=== PATIENT | female | born 1960 | race Caucasian/White ===

== ENCOUNTER → 2018-04-26 13:36 | Outpatient (CLI) | payer OTHER, SELFPAY ==
[2018-05-01 11:19] LABS: QuantiFERON TB Negative (Negative)
== END ==
PROVIDERS: PCP Family Medicine; Visit Provider Family Medicine
DX: Z11.1 Encounter for screening for respiratory tuberculosis (principal)
CPT/HCPCS: 36415; 86480

== ENCOUNTER → 2018-05-21 09:38 | Outpatient (CLI) | payer OTHER, SELFPAY ==
--- NOTE | 2018-05-21 | DI.US.S_ITS ---
ULTRASOUND OF RIGHT BREAST: 05/21/2018 CLINICAL: Short term follow-up right axillary nodes. Comparison is made to exams dated: 12/07/2017 ultrasound, 12/07/2017 mammogram, and 02/20/2014 mammogram - [facility]. Color flow ultrasound of the right breast was performed on the areas of interest. Miller scale images of the real-time examination were reviewed. There are multiple 1.1 cm x 0.6 cm x 0.7 cm lobulated enlarged nodes in the right axillary tail. These abnormalities are not significantly changed from the ultrasound dated 12/07/17 and correlate as palpated. IMPRESSION: SUSPICIOUS OF MALIGNANCY - FOLLOW-UP RECOMMENDED The multiple 1.1 cm x 0.6 cm x 0.7 cm lobulated enlarged nodes are at a low suspicion for malignancy. An ultrasound guided biopsy is recommended. This exam was interpreted at Station ID: [id number]. SUMMARY: This was discussed with the patient by the radiologist at the time of the exam. Electronically Signed By: Nancy ryan/:05/21/2018 12:05:54 letter sent: Biopsy Required Ultrasound BI-RADS: 4a Suspicious abnormality - low suspicion for malignancy
--- NOTE | 2018-05-21 09:39 | DI.US.S_ITS ---
PROCEDURE: US SOFT TISSUE HEAD AND NECK INDICATIONS: Lymphadenopathy TECHNIQUE: Real-time scanning was performed of the neck region of interest, with image documentation. COMPARISON: None. FINDINGS: Sonographic images of the neck demonstrate bilateral lymph nodes in the supraclavicular region as well as posterior right neck. The largest in the supraclavicular regions as identified on the left measuring 14 x 10 x 21 mm. There is no increased vascularity. The posterior right neck lymph node measures 12 x 3 x 11 mm. IMPRESSION: Mildly enlarged lymph nodes as above. While these could be reactive in nature, recommend interval followup if there is concern for potential neoplastic disease. Dictated by: Wanda Gibbons M.D. on 05/21/2018 at 11:52 Approved by: Wanda Gibbons M.D. on 05/21/2018 at 11:54
== END ==
PROVIDERS: PCP Family Medicine; Visit Provider Family Medicine
DX: R59.0 Localized enlarged lymph nodes (principal)
CPT/HCPCS: 76536; 76882

== ENCOUNTER → 2018-06-26 15:00 | Outpatient (CLI) | payer OTHER, SELFPAY | PROVIDERS: PCP Family Medicine | DX: Z23 Encounter for immunization (principal) | CPT/HCPCS: 90471; 90686 ==

== ENCOUNTER → 2018-07-02 09:50 | Outpatient (CLI) | payer OTHER, SELFPAY ==
--- NOTE | 2018-07-02 | DI.MG.S_ITS ---
UNILATERAL RIGHT DIGITAL DIAGNOSTIC MAMMOGRAM: 07/02/2018 CLINICAL: Post clip placement. Enlarged nodes right breast. Comparison is made to exams dated: 07/02/2018 ultrasound biopsy, 05/21/2018 ultrasound, 12/07/2017 ultrasound, 12/07/2017 ultrasound, 12/07/2017 mammogram, and 02/20/2014 mammogram - [facility]. There are scattered fibroglandular elements in the right breast. Multiple positions and attempts at digital mammography were attempted. Known biopsy marker visualized on ultrasound within the right axilla cannot be demonstrated on digital mammography due to positioning. IMPRESSION: POST PROCEDURE MAMMOGRAM FOR MARKER PLACEMENT Known biopsy marker visualized on ultrasound within the right axilla cannot be demonstrated on digital mammography due to positioning. This exam was interpreted at Station ID: [id number]. NOTE: For mammograms, a report in lay terms will be sent to the patient. Approximately 15% of breast malignancies will not be visualized mammographically. In the management of a palpable breast mass, a negative mammogram must not discourage biopsy of a clinically suspicious lesion. Electronically Signed By: Alfred Merrill M.D. ecl/:07/02/2018 12:35:28 ACR BI-RADS Category Post-procedure mammogram for marker placement
--- NOTE | 2018-07-02 | PATH_ITS ---
[facility] Accession Number: [id number] . 01 Material submitted: . RIGHT AXILLARY LYMPH NODE . 01 Diagnosis: Right Axillary Lymph Node, Image-Guided Biopsy: Atypical B-lymphoid infiltrates, see microscopic description. MRV/07/09/2018 . 01 Electronically signed: . Noah Giles MD, Pathologist NPI- [id number] . 01 Gross description: . Received in formalin are multiple core biopsies of street-white tissue (lengths-1.1 cm-1.7 cm, diameters-0.1 cm). Entirely submitted in cassette A1. ([id number]) /MRV . 01 Microscopic: . Microscopic examination reveals slightly distorted architecture of the lymph node with mildly increased number of lymphoid follicles (however not overly increased or with [id number] morphology). To better evaluate those lymphoid follicles, a panel of immunostains is performed with the following results: . CD10, BCL6 and CD20 label the lymphoid follicles (CD23 marking the follicular dendritic meshwork). BCL2 shows aberrant coexpression in those slightly atypical follicles. The proliferation marker Ki-67 is low, positive within the atypical as well as the reactive follicles. Cyclin-D1 is negative. CD3, CD5 and CD43 label inter- and perifollicular T-lymphocytes (which also appropriately express BCL2). [place] and lambda light chain immunostains show mild kappa excess (although without definite kappa restriction). [place] and lambda light chains label background polytypic plasma cells. JOSE A immunostain (panepithelial marker) is negative for carcinoma. . Although those follicles are atypical (mildly increased in number with aberrant BCL2 coexpression), the overall findings are worrisome but not entirely diagnostic for low-grade B-cell lymphoma. . Therefore, excision of the lymph node is advised for better evaluation (with flow cytometry performed on tissue within RPMI media). . As part of ongoing supervisor quality control, this case is also reviewed by hematopathologist, Dr. Manuela Virgen, who agrees with the interpretation. . * This test was developed and its performance characteristics determined by [employer] It has not been cleared or approved by the U.S. Food and Drug Administration. The FDA has determined that such clearance or approval is not necessary. This test is used for clinical purposes. It should not be regarded as investigational or for research. . 01 Pathologist provided ICD-10: R59.0 . 01 CPT . 809349, C09301, X72827 Specimen Comment: A duplicate report has been generated due to demographic updates. [facility]formed at: [facility] [address] [place] [address], [place], [place] [id number] MD Tian Newton MD Phone: [phone]
--- NOTE | 2018-07-02 | DI.US.S_ITS ---
ULTRASOUND GUIDED BIOPSY RIGHT BREAST WITH MARKING DEVICE INSERTED AND POST DIGITAL MAMMOGRAPHIC AND ULTRASOUND IMAGIN07/02/2018 CLINICAL: Right axillary node biopsy. PATIENT CONSENT: Risks (minor bleeding, infection, vasovagal reaction and repeat procedure), benefits and alternatives were explained to the patient and written informed consent was obtained. Correlation is made to exams dated: 05/21/2018 ultrasound, 12/07/2017 ultrasound, 12/07/2017 mammogram, and 02/20/2014 mammogram - [facility]. An ultrasound guided biopsy using real-time ultrasound was performed for the concerning lymph node located in the right axilla. This was described on the previous ultrasound report. The skin was prepped in the usual manner. 5 mL of 1% lidocaine and 5 mL of 1% lidocaine with epinephrine was used for local anesthesia. The abnormality was approached from the lateral aspect. An 18 gauge biopsy needle was placed adjacent to the abnormality under ultrasound guidance. Once the needle was documented to be in the correct location, six specimens were obtained using the [employer] biopsy device. A Celero maddison-shaped clip was inserted into the biopsy cavity. A skin adhesive was applied to the access site. Post procedure ultrasound imaging demonstrates the clip at the targeted area within the lymph node; post procedure digital diagnostic mammography could not achieve adequate axillary positioning to visualize the clip mammographically. The specimens were sent to the laboratory for pathological analysis. IMPRESSION: ULTRASOUND GUIDED BIOPSY MALIGNANT Ultrasound guided biopsy of the lymph node in the right axilla was successful with no apparent post procedure complications. Pathology demonstrates atypical B-lymphoid infiltrates worrisome for low-grade B-cell lymphoma. Surgical excision of the lymph node is advised. The lymph node is amenable to ultrasound guided wire localization for surgical excision. This exam was interpreted at Station ID: [id number]. Alfred perez,ddp/:07/10/2018 08:07:40
== END ==
PROVIDERS: PCP Family Medicine; Visit Provider Family Medicine
DX: R59.0 Localized enlarged lymph nodes (principal); R92.8 Other abnormal and inconclusive findings on diagnostic imaging of breast
CPT/HCPCS: 38505; 76942; 77065; 77066; G0279

== ENCOUNTER → 2018-07-24 08:09 | Outpatient (CLI) | payer OTHER, SELFPAY ==
--- NOTE | 2018-07-24 | DI.MG.S_ITS ---
SPECIMEN RIGHT BREAST: 07/24/2018 CLINICAL: Right Axillary specimen. Correlation is made to exam dated: 05/21/2018 [facility]. A surgical specimen was imaged for the concerning circumscribed oval lymph node located in the right axillary tail. This was described on the previous mammography report. IMPRESSION: SPECIMEN The imaged specimen includes the lesion and the distal portion of the localization wire. The specimen shows characteristics of the mammographic and sonographic findings. This exam was interpreted at Station ID: [id number]. Tian sears/gabriella:07/25/2018 09:21:51
--- NOTE | 2018-07-24 | DI.US.S_ITS ---
PROCEDURE: US WIRE LOC NON BREAST COMPARISON: None. INDICATIONS: PRE-OP WIRE LOCALIZATION FINDINGS: After obtaining informed consent the right axillary region was prepared and draped in sterile fashion and anesthetized with 1% lidocaine. Utilizing sonographic guidance a 7 cm long Kopan's wire was advanced with its tip penetrating the posterior margin of the previously biopsied right axillary lymph node, containing a similar oval metallic clip within. This was successfully accomplished, and the patient was transported to the presurgery area for preparation for axillary lymph node excision. IMPRESSION: Successful ultrasound-guided wire localization of a recently biopsied right axillary lymph node. Dictated by: Jossue Shelton M.D. on 07/24/2018 at 9:50 Approved by: Jossue Shelton M.D. on 07/24/2018 at 9:51
== END ==
PROVIDERS: PCP Family Medicine; Visit Provider Surgery
DX: R59.1 Generalized enlarged lymph nodes (principal)
CPT/HCPCS: 10035; 76098

== ENCOUNTER 2018-07-24 08:11 | Day surgery (SDC) | payer OTHER, SELFPAY ==
[2018-07-24] VITALS (8 sets, daily range): BP systolic 97–139; BP diastolic 67–93; PULSE 54–93; RESP 10–16; TEMP 36.1–37; O2SAT 97–100; BMI 29.0
--- NOTE | 2018-07-24 | PATH_ITS ---
[facility] Accession Number: [id number] . 01 Material submitted: . PART A: RIGHT AXILLARY LYMPH NODE PART B: RIGHT AXILLARY LYMPH NODE . 01 Diagnosis: A, B. 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 Negative for diffuse large B-cell lymphoma. MRV/07/30/2018 . 01 Comment: As part of ongoing chemistry quality control analyst, this case is also reviewed by Dr. Manuela Virgen, hematopathologist, who agrees with the diagnosis. . 01 Electronically signed: . Noah Giles MD, Pathologist NPI- [id number] . 01 Gross description: . (A) Received in formalin, labeled right axillary lymph node, are multiple pieces of adipose tissue (4.5 x 3.4 x 1.7 cm in aggregate) partially covered in das-white smooth shiny unremarkable skin (2.1 x 0.7 cm). The adipose tissue contains multiple fragments of lymph node (3.0 x 2.2 x 0.4 cm in aggregate). The lymph node fragments are entirely submitted in cassette A1 and a service support representative section of skin and adipose tissue are submitted in cassette A2. (B) Received in B-Plus fix, labeled right axillary lymph node, are multiple piece of lymph node (3.2 x 2.2 x 0.6 cm in aggregate). Serially sectioned and entirely submitted in cassettes B1 and B2. . Note: Per the requisition, additional tissue was received in RPMI and sent to flow cytometry for analysis. (JM:cmc10 [id number]) /MRV . 01 Microscopic: . Microscopic examination of the axillary lymph node (parts A and B) reveals effacement of the normal ganga architecture and proliferation of neoplastic lymphocytes with a predominantly follicular pattern, as well as within interfollicular distribution. The neoplastic follicles are crowded, back to back, lacking mantle zones. The neoplastic lymphocytes also extend in the perinodal adipose tissue. The neoplastic follicles are composed of predominantly small lymphocytes, with irregular cleaved nucleus and inconspicuous nucleolus (centrocytes) with only fewer interspersed larger lymphocytes (centroblasts) present. The centroblast count is less than 15 per 40X high-power field. Immunohistochemical studies were performed with the following results: . CD3 (blocks A1, B1): T lymphocytes positive. CD5 (block A1): T lymphocytes positive (neoplastic lymphocytes negative). CD10 (block A1): Neoplastic follicles positive. CD20 (blocks A1 and B1): Neoplastic lymphocytes positive in follicular and interfollicular location. CD23 (blocks A1 and B1): Follicular dendritic meshwork preserved. CD43 (block A1): T lymphocytes positive (neoplastic lymphocytes negative). BCL2 (blocks A1 and B1): Neoplastic B lymphocytes positive. BCL6 (blocks A1 and B1): Neoplastic B lymphocytes positive. Cyclin D1 (block A1): Neoplastic B lymphocytes negative. Proliferation marker Ki-67 (blocks A1 and B1): Approximately 20%-30%. . In summary, the morphology along with immunohistochemistry supports mature B-cell lymphoma, follicular center cell origin, consistent with follicular lymphoma low grade (grade 1-2/3) without evidence of diffuse large B-cell component. . * This test was developed and its performance characteristics determined by [employer]. It has not been cleared or approved by the U.S. Food and Drug Administration. The FDA has determined that such clearance or approval is not necessary. This test is used for clinical purposes. It should not be regarded as investigational or for research. . 01 Pathologist provided ICD-10: C82.14 . 01 CPT . 243090, 780566, B88848, T68930 Performed at: [facility] [address], [place], [place] [id number] MD Tian Newton MD Phone: [phone]
[2018-07-24] MEDS: LACTATED RINGERS 1,000 ML 100 ML IV (09:54)
--- NOTE | 2018-07-24 11:22 | PM.PREOP ---
Pre-operative Note Interval Note Pre-op Check: Yes History & Physical Reviewed by Physician and Yes Exam Performed Changes: No H&P completed within 30 days and has changed as indicated here:: Patient seen and examined. Patient marked in the preoperative area. Images are reviewed. History and physical examination documented last week as not changed. We will proceed with needle localization lymph node excisional biopsy as planned today.
--- NOTE | 2018-07-24 11:46 | SUR.OPER ---
Supine on padded OR bed, head on pillow, arms secured on padded arm boards at <90 degrees abduction, legs uncrossed, safety belt at thigh, tape over blanket over lower legs.
[2018-07-24] MEDS: LIDOCAINE 1% W/EPI INJ 20 ML INJ (12:39)
[2018-07-24] MEDS: BUPIVACAINE 0.5% (PF) VIAL 30 ML INJ (12:40)
--- NOTE | 2018-07-24 13:21 | P.OP_ITS ---
Operative Date/Time/Diagnoses Date of procedure: 07/24/18 Time of procedure: 13:14 Pre-op diagnosis: right axillary lymphadenopathy Post-op diagnosis: same Procedure & Clinicians Procedure: right axillary wire localization lymph node excisional biopsy Same procedure as scheduled: Yes Indications: 58-year-old female who presented with palpable lymphadenopathy confirmed on ultrasound. Image guided biopsy was suspicious for low-grade B- cell lymphoma. Excisional biopsy was recommended. Wire localization was also recommended since the previous node had been marked with a biopsy marker clip. Surgeon: Teodoro Burns Click Yes if Unassisted: Yes Anesthesia Type: General Operative Notes Findings: 1. intact wire localization device within conglomeration of enlarged multiple lymph nodes right axilla 2. grossly abnormal right axillary lymph nodes, excised Closure Type: primary Specimen(s): other ( right axillary lymph nodes for lymphoma studies) Implants & Drains: [address] drain right axilla to bulb suction Applied: drain(s) ( as above) Estimated Blood Loss (mL): 10 Blood products transfused: none Procedure in detail: after obtaining informed consent the patient was initially brought to Radiology Department where wire localization under ultrasound guidance was performed. Please see their records for further details. Patient was then brought to the operating room and placed supine on the table. After satisfactory induction of anesthesia the wire was cut to a shorter length and the entire field was prepped and draped in usual sterile fashion. SCOAP time out was performed per standard protocol. elliptical incision was then designed in the right axilla incorporating the wire insertion site. Area was infiltrated with a 1: 1 mixture 1% lidocaine with 1 :100,000 epinephrine and 0.5% plain Marcaine for postoperative analgesia. Skin incision was created to 15 scalpel blade. Bovie was used to achieve hemostasis and carried the dissection directly into the axillary contents following the course of the wire. Great care was taken to avoid dislodging the wire. Findings are as above. Lymph nodes were excised along with the wire device. Hemostasis was achieved with clamps and 2 0 silk ties. Hemoclips were applied also. Specimen was excised and sent back to Radiology for radiographic examination. Lymph node containing the previously placed biopsy marker clip as well as the intact wire device was visualized. Wound was irrigated with copious amounts of sterile saline solution and hemostasis verified. Lane drain was placed through a separate stab incision inferior to the wound and secured to the skin with 3 0 nylon stitch. Subcutaneous tissue was reapproximated with interrupted 3 0 Vicryl suture. Skin was closed in a running subcuticular fashion with 4 0 Monocryl suture. Dermal adhesive was applied to the incision. Drain was cut to appropriate size and placed to bulb suction. Sterile dressing was placed around the drain. Anesthesia was reversed and patient extubated in the operating room. She was taken recovery in stable condition. Complications: none Condition: stable Disposition: PACU Plan for aftercare: 1. Discharge to home 2. Drain care as instructed 3. Follow up in surgery Clinic in 3 days
== END 2018-07-24 13:33 | disposition home or self-care (01) ==
PROVIDERS: PCP Family Medicine; Visit Provider Surgery
PROC: (CPT 38500; principal; 2018-07-24 11:30)
DX: C82.14 Follicular lymphoma grade II, lymph nodes of axilla and upper limb (principal)
CPT/HCPCS: 38500; 10035; 76098; J1100; J2250; J2405; J2704; J3010

== ENCOUNTER → 2018-12-26 08:11 | Outpatient (CLI) | payer OTHER, SELFPAY ==
[2018-12-26 08:48] LABS: Add Manual Diff / Slide Review NO; Basophils Absolute Auto 100 /uL (0-100); Eosinophils Absolute Auto 200 /uL (0-450); Eosinophils Percent Auto 2.9 % (2-4); Hematocrit 37.2 % (36-46); Hemoglobin 12.5 g/dL (12.0-16.0); Lymphocytes Absolute Auto 1700 /uL (1100-4500); Lymphocytes Percent Auto 25.9 % (25-40); Mean Corpuscular HGB Conc 33.5 % (30-36); Mean Corpuscular Hemoglobin 27.7 PG (26-34); Mean Corpuscular Volume 82.7 fL (80-100); Monocytes Absolute Auto 600 /uL (0-900); Monocytes Percent Auto 8.2 % (3-14); Neutrophils Absolute Auto 4200 /uL (1500-7000); Platelet Count 210 X10^3/uL (150-400); Red Cell Distribution Width 12.8 % (11.6-14.8); White Blood Cell Count 6.7 X10^3/uL (4.5-11.0)
[2018-12-26 08:56] LABS: Cholesterol 190 mg/dL (140-199); HDL Cholesterol 50 mg/dL (40-60); LDL Cholesterol Calculated 123 mg/dL (<100); Triglycerides 85 mg/dL (35-150)
[2018-12-26 09:33] LABS: Free T3, Triiodothyronine Free 2.85 pg/mL (2.77-5.27)
== END ==
PROVIDERS: PCP Family Medicine; Visit Provider Family Medicine
DX: E03.9 Hypothyroidism, unspecified (principal); Z51.81 Encounter for therapeutic drug level monitoring
CPT/HCPCS: 36415; 80061; 84439; 84443; 84481; 85025

== ENCOUNTER → 2018-12-31 11:30 | Outpatient (CLI) | payer OTHER, SELFPAY ==
--- NOTE | 2018-12-31 11:33 | DI.RAD.S_ITS ---
PROCEDURE: XR CHEST 2V INDICATIONS: SOB TECHNIQUE: 2 views of the chest were acquired. COMPARISON: [facility], , CHEST 2 VIEW, 11/02/2017, 8:05. FINDINGS: Surgical changes and devices: None. Lungs and pleura: Lungs are clear. No pleural effusions or pneumothorax. Mediastinum: Mediastinal contours are normal. Heart size is normal. Bones and chest wall: No suspicious bony abnormalities. Soft tissues appear unremarkable. IMPRESSION: No active cardiopulmonary disease. Dictated by: Clarisse Remy M.D. on 12/31/2018 at 14:25 Approved by: Clarisse Remy M.D. on 12/31/2018 at 14:25
== END ==
PROVIDERS: PCP Family Medicine; Visit Provider Family Medicine
DX: R06.02 Shortness of breath (principal)
CPT/HCPCS: 71046

== ENCOUNTER → 2019-01-29 10:15 | Outpatient (CLI) | payer OTHER, SELFPAY ==
--- NOTE | 2019-01-29 | DI.MG.S_ITS ---
BILATERAL DIGITAL SCREENING MAMMOGRAM 3D/2D WITH CAD: 01/29/2019 CLINICAL: Routine screening. Personal history of right breast cancer. Comparison is made to exams dated: 12/07/2017 mammogram, 02/11/2014 mammogram, and 08/12/2008 mammogram - [facility]. There are scattered fibroglandular elements in both breasts. Current study was also evaluated with a Computer Aided Detection (CAD) system. There are benign masses in both breasts. No significant masses, calcifications, or other findings are seen in either breast. There has been no significant interval change. IMPRESSION: There is no mammographic evidence of malignancy. A 1 year screening mammogram is recommended. This exam was interpreted at Station ID: [id number]. NOTE: For mammograms, a report in lay terms will be sent to the patient. Approximately 15% of breast malignancies will not be visualized mammographically. In the management of a palpable breast mass, a negative mammogram must not discourage biopsy of a clinically suspicious lesion. Electronically Signed By: Ernesto noe/gabriella:01/29/2019 12:32:52 letter sent: Normal Exam ACR BI-RADS Category 2: Benign Finding(s) 3342F
== END ==
PROVIDERS: PCP Family Medicine; Visit Provider Family Medicine
DX: Z12.31 Encounter for screening mammogram for malignant neoplasm of breast (principal); Z85.3 Personal history of malignant neoplasm of breast
CPT/HCPCS: 77063; 77067

== ENCOUNTER → 2020-02-24 16:00 | Outpatient (CLI) | payer OTHER, SELFPAY ==
[2020-02-24 17:42] LABS: Hemoglobin A1C% w Est Avg Glu 5.7 % (4.0-6.0)
[2020-02-24 18:36] LABS: Thyroid Stimulating Hormone 1.26 uIU/mL (0.47-4.68)
== END ==
PROVIDERS: PCP Student in an Organized Health Care Education/Training Program; Referring Provider Naturopath; Visit Provider Naturopath
DX: E03.9 Hypothyroidism, unspecified (principal); R73.9 Hyperglycemia, unspecified
CPT/HCPCS: 36415; 83036; 84443

== ENCOUNTER → 2020-05-18 17:24 | Outpatient (CLI) | payer OTHER, SELFPAY ==
--- NOTE | 2020-05-18 17:27 | DI.MG.S_ITS ---
BILATERAL DIGITAL SCREENING MAMMOGRAM 3D/2D WITH CAD: 05/18/2020 CLINICAL: Routine screening. Comparison is made to exams dated: 01/29/2019 mammogram, 12/07/2017 mammogram, 02/20/2014 mammogram, and 02/11/2014 mammogram - [facility]. There are scattered fibroglandular elements in both breasts. Current study was also evaluated with a Computer Aided Detection (CAD) system. There are benign masses in both breasts. No significant masses, calcifications, or other findings are seen in either breast. There has been no significant interval change. IMPRESSION: BENIGN There is no mammographic evidence of malignancy. A 1 year screening mammogram is recommended. This exam was interpreted at Station ID: [id number]. NOTE: For mammograms, a report in lay terms will be sent to the patient. Approximately 15% of breast malignancies will not be visualized mammographically. In the management of a palpable breast mass, a negative mammogram must not discourage biopsy of a clinically suspicious lesion. Electronically Signed By: Edwardo Brown M.D., jr/gabriella:05/19/2020 09:36:33 letter sent: Normal Exam ACR BI-RADS Category 2: Benign Finding(s) 3342F
== END ==
PROVIDERS: PCP Student in an Organized Health Care Education/Training Program; Referring Provider Student in an Organized Health Care Education/Training Program; Visit Provider Student in an Organized Health Care Education/Training Program
DX: Z12.31 Encounter for screening mammogram for malignant neoplasm of breast (principal)
CPT/HCPCS: 77063; 77067

== ENCOUNTER → 2020-11-16 12:00 | Outpatient (CLI) | payer OTHER, SELFPAY ==
[2020-11-16 12:49] LABS: Add Manual Diff / Slide Review NO; Basophils Absolute Auto 100 /uL (0-100); Basophils Percent Auto 0.7 % (0-2); Eosinophils Absolute Auto 100 /uL (0-450); Eosinophils Percent Auto 1.6 % (2-4); Hemoglobin 12.7 g/dL (12.0-16.0); Lymphocytes Absolute Auto 2500 /uL (1100-4500); Lymphocytes Percent Auto 30.7 % (25-40); Mean Corpuscular HGB Conc 33.3 % (30-36); Mean Corpuscular Hemoglobin 27.2 PG (26-34); Mean Corpuscular Volume 81.7 fL (80-100); Monocytes Absolute Auto 500 /uL (0-900); Monocytes Percent Auto 6.3 % (3-14); Neutrophils Absolute Auto 4900 /uL (1500-7000); Neutrophils Percent Auto 60.7 % (50-75); Platelet Count 264 X10^3/uL (150-400); Red Blood Cell Count 4.65 X10^6/uL (4.0-5.2); Red Cell Distribution Width 13.4 % (11.6-14.8)
[2020-11-16 13:08] LABS: Alanine Aminotransferase 22 IU/L (<35); Albumin 4.5 g/dL (3.5-5.0); Albumin Globulin Ratio 1.5 (1.0-2.8); Alkaline Phosphatase 69 U/L (38-126); Aspartate Aminotransferase 26 IU/L (14-36); BUN Creatinine Ratio 13.6 (6-22); Bilirubin Total 0.3 mg/dL (0.2-1.3); Bilirubin Unconjugated 0.4 mg/dL (0.0-1.1); Blood Urea Nitrogen 11 mg/dL (7-17); Calcium 9.7 mg/dL (8.4-10.2); Carbon Dioxide 28 mmol/L (22-32); Chloride 100 mmol/L (98-107); Estimated Glomerular Filt Rate > 60.0 mL/min (>60); Globulin 3.1 g/dL (1.7-4.1); Glucose 103 mg/dL (80-110); HEMOLYSIS < 15 (0-50); Lactate Dehydrogenase 455 U/L (313-618); Magnesium 2.2 mg/dL (1.6-2.3); Phosphorous 3.8 mg/dL (2.8-4.1); Potassium 4.1 mmol/L (3.4-5.1); Sodium 135 mmol/L (137-145); Total Protein 7.6 g/dL (6.3-8.2); Uric Acid 4.8 mg/dL (2.5-6.2)
== END ==
PROVIDERS: PCP Student in an Organized Health Care Education/Training Program; Referring Provider Internal Medicine Hematology & Oncology; Visit Provider Internal Medicine Hematology & Oncology
DX: C82.01 Follicular lymphoma grade I, lymph nodes of head, face, and neck (principal)
CPT/HCPCS: 36415; 80069; 80076; 83615; 83735; 84550; 85025

== ENCOUNTER → 2021-04-14 10:22 | Outpatient (CLI) | payer OTHER, SELFPAY ==
[2021-04-14 13:31] LABS: Free T3, Triiodothyronine Free 3.03 pg/mL (2.77-5.27); Free T4, Direct Thyroxine 0.74 ng/dL (0.78-2.19)
[2021-04-14 13:44] LABS: Thyroid Stimulating Hormone 1.17 uIU/mL (0.47-4.68)
== END ==
PROVIDERS: PCP Student in an Organized Health Care Education/Training Program; Referring Provider Naturopath; Visit Provider Naturopath
DX: E03.9 Hypothyroidism, unspecified (principal)
CPT/HCPCS: 36415; 84439; 84443; 84481

== ENCOUNTER → 2021-07-12 16:43 | Outpatient (CLI) | payer OTHER, SELFPAY ==
--- NOTE | 2021-07-12 16:44 | DI.MG.S_ITS ---
BILATERAL DIGITAL SCREENING MAMMOGRAM 3D/2D WITH CAD: 07/12/2021 Comparison is made to exams dated: 07/02/2018 mammogram, 05/18/2020 mammogram, and 01/29/2019 mammogram - [facility]. There are scattered fibroglandular elements in both breasts. Current study was also evaluated with a Computer Aided Detection (CAD) system. There are benign masses in both breasts. No significant masses, calcifications, or other findings are seen in either breast. There has been no significant interval change. IMPRESSION: BENIGN There is no mammographic evidence of malignancy. A 1 year screening mammogram is recommended. This exam was interpreted at Station ID: [id number]. NOTE: For mammograms, a report in lay terms will be sent to the patient. Approximately 15% of breast malignancies will not be visualized mammographically. In the management of a palpable breast mass, a negative mammogram must not discourage biopsy of a clinically suspicious lesion. Electronically Signed By: Ernesto noe/gabriella:07/13/2021 09:22:49 letter sent: Normal Exam ACR BI-RADS Category 2: Benign Finding(s) 3342F
== END ==
PROVIDERS: PCP Student in an Organized Health Care Education/Training Program; Referring Provider Student in an Organized Health Care Education/Training Program; Visit Provider Student in an Organized Health Care Education/Training Program
DX: Z12.31 Encounter for screening mammogram for malignant neoplasm of breast (principal)
CPT/HCPCS: 77063; 77067

== ENCOUNTER → 2021-12-06 14:09 | Outpatient (CLI) | payer OTHER, SELFPAY ==
[2021-12-06 16:29] LABS: Add Manual Diff / Slide Review NO; Basophils Absolute Auto 100 /uL (0-100); Basophils Percent Auto 0.7 % (0-2); Eosinophils Absolute Auto 200 /uL (0-450); Eosinophils Percent Auto 2.8 % (2-4); Hematocrit 40.5 % (36-46); Hemoglobin 13.5 g/dL (12.0-16.0); Lymphocytes Absolute Auto 2400 /uL (1100-4500); Lymphocytes Percent Auto 28.6 % (25-40); Mean Corpuscular HGB Conc 33.3 % (30-36); Mean Corpuscular Hemoglobin 27.1 PG (26-34); Mean Corpuscular Volume 81.5 fL (80-100); Monocytes Absolute Auto 500 /uL (0-900); Monocytes Percent Auto 6.4 % (3-14); Neutrophils Absolute Auto 5300 /uL (1500-7000); Neutrophils Percent Auto 61.5 % (50-75); Platelet Count 253 X10^3/uL (150-400); Red Blood Cell Count 4.96 X10^6/uL (4.0-5.2); Red Cell Distribution Width 13.5 % (11.6-14.8); White Blood Cell Count 8.6 X10^3/uL (4.5-11.0)
[2021-12-06 17:48] LABS: Alanine Aminotransferase 20 IU/L (<35); Albumin 5.1 g/dL (3.5-5.0); Albumin Globulin Ratio 1.5 (1.0-2.8); Alkaline Phosphatase 59 U/L (38-126); Aspartate Aminotransferase 25 IU/L (14-36); BUN Creatinine Ratio 18.4 (6-22); Bilirubin Total 0.6 mg/dL (0.2-1.3); Blood Urea Nitrogen 14 mg/dL (7-17); Calcium 9.3 mg/dL (8.4-10.2); Carbon Dioxide 26 mmol/L (22-32); Chloride 103 mmol/L (98-107); Estimated Glomerular Filt Rate > 60.0 mL/min (>60); Globulin 3.3 g/dL (1.7-4.1); Glucose 98 mg/dL (80-110); HEMOLYSIS < 15 (0-50); Potassium 3.8 mmol/L (3.4-5.1); Sodium 137 mmol/L (137-145); Total Protein 8.4 g/dL (6.3-8.2)
[2021-12-06 19:25] LABS: Lactate Dehydrogenase 517 U/L (313-618); Uric Acid 4.8 mg/dL (2.5-6.2)
== END ==
PROVIDERS: PCP Student in an Organized Health Care Education/Training Program; Referring Provider Internal Medicine Hematology & Oncology; Visit Provider Internal Medicine Hematology & Oncology
DX: C82.90 Follicular lymphoma, unspecified, unspecified site (principal)
CPT/HCPCS: 36415; 80053; 83615; 84550; 85025

== ENCOUNTER → 2022-08-12 11:42 | Outpatient (CLI) | payer OTHER, SELFPAY ==
--- NOTE | 2022-08-12 11:43 | DI.MG.S_ITS ---
BILATERAL DIGITAL SCREENING MAMMOGRAM 3D/2D WITH CAD: 08/12/2022 CLINICAL: Routine screening. Comparison is made to exams dated: 07/12/2021 mammogram, 05/18/2020 mammogram, and 01/29/2019 mammogram - [facility]. There are scattered areas of fibroglandular density in both breasts (category b / 25%-50% glandular tissue). Current study was also evaluated with a Computer Aided Detection (CAD) system. There are benign masses in both breasts. No significant masses, calcifications, or other findings are seen in either breast. There has been no significant interval change. IMPRESSION: BENIGN There is no mammographic evidence of malignancy. A 1 year screening mammogram is recommended. This exam was interpreted at Station ID: [id number]. NOTE: For mammograms, a report in lay terms will be sent to the patient. Approximately 15% of breast malignancies will not be visualized mammographically. In the management of a palpable breast mass, a negative mammogram must not discourage biopsy of a clinically suspicious lesion. Electronically Signed By: Sagar muhammad/gabriella:08/12/2022 14:01:45 letter sent: Normal Exam ACR BI-RADS Category 2: Benign Finding(s) 3342F
== END ==
PROVIDERS: PCP Student in an Organized Health Care Education/Training Program; Referring Provider Student in an Organized Health Care Education/Training Program; Visit Provider Student in an Organized Health Care Education/Training Program
DX: Z12.31 Encounter for screening mammogram for malignant neoplasm of breast (principal)
CPT/HCPCS: 77063; 77067

== ENCOUNTER → 2022-10-07 07:42 | Outpatient (CLI) | payer OTHER, SELFPAY ==
[2022-10-07 08:48] LABS: Hemoglobin A1C% w Est Avg Glu 5.8 % (4.0-6.0)
[2022-10-07 09:08] LABS: Cholesterol 259 mg/dL (140-199); Glucose 116 mg/dL (80-110); HDL Cholesterol 65 mg/dL (40-60); LDL Cholesterol Calculated 165 mg/dL (<100); Triglycerides 146 mg/dL (35-150)
[2022-10-07 09:24] LABS: Free T3, Triiodothyronine Free 3.27 pg/mL (2.77-5.27); Free T4, Direct Thyroxine 0.74 ng/dL (0.78-2.19)
[2022-10-07 09:38] LABS: Thyroid Stimulating Hormone 1.94 uIU/mL (0.47-4.68)
== END ==
PROVIDERS: PCP Student in an Organized Health Care Education/Training Program; Referring Provider Naturopath; Visit Provider Naturopath
DX: Z00.00 Encounter for general adult medical examination without abnormal findings (principal); E03.9 Hypothyroidism, unspecified; R73.9 Hyperglycemia, unspecified
CPT/HCPCS: 36415; 80061; 82947; 83036; 84439; 84443; 84481

== ENCOUNTER → 2023-10-13 10:58 | Outpatient (CLI) | payer OTHER, SELFPAY ==
--- NOTE | 2023-10-13 | DI.MG.S_ITS ---
BILATERAL DIGITAL SCREENING MAMMOGRAM 3D/2D WITH CAD: 10/13/2023 CLINICAL: Routine screening. Comparison is made to exams dated: 08/12/2022 mammogram, 07/12/2021 mammogram, and 05/18/2020 mammogram - [facility]. There are scattered areas of fibroglandular density in both breasts (category b / 25%-50% glandular tissue). Current study was also evaluated with a Computer Aided Detection (CAD) system. There is an oval asymmetry in the right breast middle depth superior region seen on the mediolateral oblique view only. This is increased in size. No other significant masses, calcifications, or other findings are seen in either breast. IMPRESSION: INCOMPLETE: NEEDS ADDITIONAL IMAGING EVALUATION The oval asymmetry in the right breast is indeterminate. Additional views with possible ultrasound are recommended. Other presumed benign oval circumscribed masses are present. This exam was interpreted at Station ID: [id number]. NOTE: For mammograms, a report in lay terms will be sent to the patient. Approximately 15% of breast malignancies will not be visualized mammographically. In the management of a palpable breast mass, a negative mammogram must not discourage biopsy of a clinically suspicious lesion. Electronically Signed By: Adelso Yao M.D. /:10/13/2023 13:53:42 letter sent: Additional Imaging Needed ACR BI-RADS Category 0: Incomplete [id number]
== END ==
PROVIDERS: PCP Family Medicine; Referring Provider Family Medicine; Visit Provider Family Medicine
DX: Z12.31 Encounter for screening mammogram for malignant neoplasm of breast (principal)
CPT/HCPCS: 77063; 77067

== ENCOUNTER → 2023-11-03 09:48 | Outpatient (CLI) | payer OTHER, SELFPAY ==
[2023-11-03 10:32] LABS: Add Manual Diff / Slide Review NO; Basophils Absolute Auto 100 /uL (0-100); Basophils Percent Auto 1.1 % (0-2); Eosinophils Absolute Auto 100 /uL (0-450); Eosinophils Percent Auto 2.1 % (2-4); Hemoglobin 12.5 g/dL (12.0-16.0); Lymphocytes Absolute Auto 2000 /uL (1100-4500); Lymphocytes Percent Auto 31.7 % (25-40); Mean Corpuscular Hemoglobin 27.4 PG (26-34); Monocytes Absolute Auto 500 /uL (0-900); Monocytes Percent Auto 7.9 % (3-14); Neutrophils Absolute Auto 3600 /uL (1500-7000); Neutrophils Percent Auto 57.2 % (50-75); Platelet Count 207 X10^3/uL (150-400); Red Blood Cell Count 4.58 X10^6/uL (4.0-5.2); Red Cell Distribution Width 13.3 % (11.6-14.8); White Blood Cell Count 6.2 X10^3/uL (4.5-11.0)
[2023-11-03 10:59] LABS: Alanine Aminotransferase 16 IU/L (<35); Albumin 4.1 g/dL (3.5-5.0); Albumin Globulin Ratio 1.4 (1.0-2.8); Alkaline Phosphatase 55 U/L (38-126); Aspartate Aminotransferase 19 IU/L (14-36); BUN Creatinine Ratio 16.5 (6-22); Bilirubin Total 0.6 mg/dL (0.2-1.3); Blood Urea Nitrogen 13 mg/dL (7-17); Calcium 9.2 mg/dL (8.4-10.2); Carbon Dioxide 24 mmol/L (22-32); Chloride 103 mmol/L (98-107); Cholesterol 243 mg/dL (140-199); Estimated Glomerular Filt Rate > 60 mL/min (>60); Glucose 98 mg/dL (80-110); HDL Cholesterol 49 mg/dL (40-60); HEMOLYSIS < 15 (0-50); LDL Cholesterol Calculated 165 mg/dL (<100); Potassium 4.1 mmol/L (3.4-5.1); Sodium 135 mmol/L (137-145); Total Protein 7.1 g/dL (6.3-8.2); Triglycerides 145 mg/dL (35-150)
[2023-11-03 11:15] LABS: Free T4, Direct Thyroxine 0.78 ng/dL (0.78-2.19)
[2023-11-03 11:20] LABS: Hemoglobin A1C% w Est Avg Glu 5.6 % (4.0-6.0)
[2023-11-03 11:28] LABS: Thyroid Stimulating Hormone 1.74 uIU/mL (0.47-4.68)
== END ==
LOC: LAB 09:49
PROVIDERS: PCP Family Medicine; Referring Provider Naturopath; Visit Provider Naturopath
DX: Z00.00 Encounter for general adult medical examination without abnormal findings (principal); R73.03 Prediabetes; E03.9 Hypothyroidism, unspecified
CPT/HCPCS: 36415; 80053; 80061; 83036; 84439; 84443; 85025

== ENCOUNTER → 2023-11-24 09:34 | Outpatient (CLI) | payer OTHER, SELFPAY ==
--- NOTE | 2023-11-24 09:35 | DI.MG.S_ITS ---
UNILATERAL RIGHT DIGITAL DIAGNOSTIC MAMMOGRAM 3D/2D WITH ADDITIONAL VIEWS: 11/24/2023 CLINICAL: Additional evaluation requested from prior study. Comparison is made to exams dated: 10/13/2023 mammogram, 08/12/2022 mammogram, and 07/12/2021 mammogram - [facility]. There are scattered areas of fibroglandular density in the right breast (category b / 25%-50% glandular tissue). Redemonstration of previously described oval asymmetry in the right breast middle depth superior region seen on the mediolateral oblique view only. This is seen in additional views. This is increased in size. No other significant masses or calcifications are seen in the breast. IMPRESSION: INCOMPLETE: NEEDS ADDITIONAL IMAGING EVALUATION The oval asymmetry in the right breast resembles a cyst or a lymph node and is indeterminate. An ultrasound is recommended for further evaluation and is scheduled to immediately follow this examination. This exam was interpreted at Station ID: [id number]. NOTE: For mammograms, a report in lay terms will be sent to the patient. Approximately 15% of breast malignancies will not be visualized mammographically. In the management of a palpable breast mass, a negative mammogram must not discourage biopsy of a clinically suspicious lesion. Electronically Signed By: Ernesto Dobbs M.D. aty/:11/24/2023 10:50:09 ACR BI-RADS Category 0: Incomplete [id number]
--- NOTE | 2023-11-24 09:36 | DI.US.S_ITS ---
LIMITED ULTRASOUND OF RIGHT BREAST: 11/24/2023 CLINICAL: Patient returns today to evaluate a focal asymmetry in the right breast. Comparison is made to exams dated: 11/24/2023 mammogram, 10/13/2023 mammogram, 08/12/2022 mammogram, 07/12/2021 mammogram, 05/18/2020 mammogram, and 01/29/2019 mammogram - [facility]. Color flow and real-time ultrasound of the right breast 10-12 o'clock region were performed. Miller scale images of the real-time examination were reviewed. There is a 0.6 cm x 0.3 cm x 0.5 cm wider than tall oval cyst in the right breast at 11 o'clock middle depth 7 cm from the nipple. This oval cyst is hypoechoic with a well-defined boundary, internal echoes, and no posterior acoustic shadowing or enhancement. This correlates with mammography findings. Color flow imaging demonstrates that there is no vascularity present. IMPRESSION: PROBABLY BENIGN The 0.6 cm x 0.3 cm x 0.5 cm wider than tall oval cyst in the right breast most likely is a complicated cyst and is probably benign. A follow-up right mammogram and an ultrasound in 6 months is recommended to demonstrate stability. Findings and recommendations were conveyed to the patient during today's evaluation. This exam was interpreted at Station ID: [id number]. Electronically Signed By: Ernesto Dobbs M.D. aty/:11/24/2023 13:03:34 letter sent: Followup Recommended Ultrasound BI-RADS: 3 Probably benign
== END ==
LOC: MAMMO 09:34
PROVIDERS: PCP Family Medicine; Referring Provider Family Medicine; Visit Provider Family Medicine
DX: R92.8 Other abnormal and inconclusive findings on diagnostic imaging of breast (principal); N60.01 Solitary cyst of right breast; R92.323 Mammographic fibroglandular density, bilateral breasts
CPT/HCPCS: 76642; 77065; G0279

== ENCOUNTER → 2024-09-20 08:47 | Outpatient (CLI) | payer OTHER, SELFPAY ==
--- NOTE | 2024-09-20 08:48 | DI.US.S_ITS ---
LIMITED ULTRASOUND OF RIGHT BREAST: 09/20/2024 CLINICAL: Patient returns today to evaluate a focal asymmetry in the right breast. Comparison is made to exams dated: 09/20/2024 mammogram, 11/24/2023 ultrasound, 11/24/2023 mammogram, 10/13/2023 mammogram, 08/12/2022 mammogram, and 07/12/2021 mammogram - [facility]. Color flow and real-time ultrasound of the right breast 11 o'clock region were performed. Miller scale images of the real-time examination were reviewed. There is a 0.3 cm x 0.3 cm x 0.2 cm oval cyst in the right breast at 11 o'clock middle depth 7 cm from the nipple. This oval cyst is hypoechoic with a well-defined boundary, few internal echoes, and no posterior acoustic shadowing or enhancement. This abnormality is decreased in size and correlates with mammography findings. Color flow imaging demonstrates that there is no vascularity present. IMPRESSION: BENIGN There is no sonographic evidence of malignancy. The 0.3 cm cyst in the right breast has decreased by more than 50%, is consistent with a complicated cyst and is benign. Return to annual mammogram screening schedule is recommended. Findings and recommendations were conveyed to the patient at time of exam. This exam was interpreted at Station ID: [id number]. Electronically Signed By: Ирина miguel/:09/20/2024 10:12:03 letter sent: Normal Exam ACR BI-RADS Category 2: Benign
--- NOTE | 2024-09-20 08:48 | DI.MG.S_ITS ---
BILATERAL DIGITAL DIAGNOSTIC MAMMOGRAM 3D/2D SHORT-TERM FOLLOW-UP: 09/20/2024 CLINICAL: Short term follow up of the right breast, due for bilateral imaging. Comparison is made to exams dated: 11/24/2023 mammogram, 10/13/2023 mammogram, and 08/12/2022 mammogram - [facility]. There are scattered areas of fibroglandular density (category b / 25%-50% glandular tissue). There is an oval asymmetry in the right breast middle depth superior region seen best on the mediolateral oblique view. This has decreased in size. There is an incidental round low density cyst with a circumscribed margin in the left breast at 4 o'clock anterior depth. This is increased in size and has otherwise benign characteristics. No other significant masses or calcifications are seen in either breast. Mammograms are otherwise stable. IMPRESSION: INCOMPLETE: NEED ADDITIONAL IMAGING EVALUATION The oval asymmetry in the right breast has decreased in size. An ultrasound is recommended for confirmation. This was performed immediately following this exam. Mammograms are otherwise normal. This exam was interpreted at Station ID: [id number]. NOTE: For mammograms, a report in lay terms will be sent to the patient. Approximately 15% of breast malignancies will not be visualized mammographically. In the management of a palpable breast mass, a negative mammogram must not discourage biopsy of a clinically suspicious lesion. Electronically Signed By: Ирина miguel/:09/20/2024 09:28:51 letter sent: Additional Imaging Needed ACR BI-RADS Category 0: Incomplete: Need Additional Imaging Evaluation
== END ==
PROVIDERS: PCP Family Medicine; Referring Provider Family Medicine; Visit Provider Family Medicine
DX: R92.8 Other abnormal and inconclusive findings on diagnostic imaging of breast (principal); N60.01 Solitary cyst of right breast
CPT/HCPCS: 76642; 77066; G0279

== ENCOUNTER → 2024-11-01 09:17 | Outpatient (CLI) | payer OTHER, SELFPAY ==
[2024-11-01 10:15] LABS: Add Manual Diff / Slide Review NO; Basophils Absolute Auto 0 /uL (0-100); Basophils Percent Auto 0.8 % (0-2); Eosinophils Absolute Auto 100 /uL (0-450); Hematocrit 39.2 % (36-46); Hemoglobin 13.1 g/dL (12.0-16.0); Lymphocytes Absolute Auto 1700 /uL (1100-4500); Lymphocytes Percent Auto 34.1 % (25-40); Mean Corpuscular HGB Conc 33.3 % (30-36); Mean Corpuscular Hemoglobin 27.6 PG (26-34); Mean Corpuscular Volume 82.9 fL (80-100); Monocytes Absolute Auto 400 /uL (0-900); Neutrophils Absolute Auto 2800 /uL (1500-7000); Neutrophils Percent Auto 55.1 % (50-75); Platelet Count 212 X10^3/uL (150-400); Red Blood Cell Count 4.73 X10^6/uL (4.0-5.2); Red Cell Distribution Width 13.7 % (11.6-14.8); White Blood Cell Count 5.1 X10^3/uL (4.5-11.0)
[2024-11-01 10:25] LABS: Hemoglobin A1C% w Est Avg Glu 5.4 % (4.0-6.0)
[2024-11-01 10:40] LABS: Alanine Aminotransferase 24 IU/L (<35); Albumin 4.7 g/dL (3.5-5.0); Albumin Globulin Ratio 1.8 (1.0-2.8); Alkaline Phosphatase 52 U/L (38-126); Aspartate Aminotransferase 24 IU/L (14-36); Bilirubin Total 0.8 mg/dL (0.2-1.3); Blood Urea Nitrogen 10 mg/dL (7-17); Calcium 9.5 mg/dL (8.4-10.2); Carbon Dioxide 24 mmol/L (22-32); Chloride 105 mmol/L (98-107); Cholesterol 240 mg/dL (140-199); Estimated Glomerular Filt Rate > 60 mL/min (>60); Globulin 2.6 g/dL (1.7-4.1); Glucose 102 mg/dL (80-110); HDL Cholesterol 62 mg/dL (40-60); HEMOLYSIS < 15 (0-50); LDL Cholesterol Calculated 156 mg/dL (<100); Potassium 4.2 mmol/L (3.4-5.1); Sodium 137 mmol/L (137-145); Total Protein 7.3 g/dL (6.3-8.2); Triglycerides 108 mg/dL (35-150)
[2024-11-01 10:52] LABS: Free T3, Triiodothyronine Free 3.26 pg/mL (2.77-5.27); Free T4, Direct Thyroxine 0.77 ng/dL (0.78-2.19)
[2024-11-01 11:06] LABS: Thyroid Stimulating Hormone 1.29 uIU/mL (0.47-4.68)
[2024-11-02 08:08] LABS: Apolipoprotein B 113 mg/dL (<90)
== END ==
PROVIDERS: PCP Family Medicine; Referring Provider Naturopath; Visit Provider Naturopath
DX: Z00.00 Encounter for general adult medical examination without abnormal findings (principal); E03.9 Hypothyroidism, unspecified; E78.00 Pure hypercholesterolemia, unspecified; R73.03 Prediabetes
CPT/HCPCS: 36415; 80053; 80061; 82172; 83036; 84439; 84443; 84481; 85025

== ENCOUNTER → 2025-05-02 09:30 | Outpatient (CLI) | payer OTHER, SELFPAY ==
[2025-05-02 10:20] LABS: Hemoglobin A1C% w Est Avg Glu 5.7 % (4.0-6.0)
[2025-05-02 10:41] LABS: Cholesterol 265 mg/dL (140-199); Glucose 108 mg/dL (70-99); HDL Cholesterol 56 mg/dL (40-60); Triglycerides 154 mg/dL (35-150)
== END ==
PROVIDERS: PCP Family Medicine; Referring Provider Naturopath; Visit Provider Naturopath
DX: E78.00 Pure hypercholesterolemia, unspecified (principal); R73.03 Prediabetes
CPT/HCPCS: 36415; 80061; 82947; 83036